=== PATIENT | female | born 2005 | race Caucasian/White ===

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

== ENCOUNTER 2023-01-28 13:22 | Emergency (ER) | payer MEDICAID, SELFPAY ==
[2023-01-28 13:24] VITALS: BP 131/82; PULSE 96; RESP 18; TEMP 36.4; O2SAT 100; BMI 20.7
--- NOTE | 2023-01-28 13:52 | EDS_ITS ---
HPI History of Present Illness Chief Complaint: Other, Pain/Inj Informant: patient Narrative Narrative: 17-year-old female presenting to the emergency room with neck pain. Patient states that on Wednesday morning she woke with pain in the right side of her neck. She notes limited range of motion due to the pain as well as discomfort with swallowing but no sore throat. No recent infections or fevers. She states that she felt like she had not in her neck on the right side and now feels some small lymph nodes. She denies any radicular symptoms. No rashes. No known trauma. Wednesday she states her neck felt fine does not recall doing anything that would have injured her neck. She states that she went to urgent care and was referred here. She denies any significant illnesses/diagnoses and no immunocompromise state. She states that she has been drinking a lot of fluids but still feels thirsty. PFSH PFS Home Medications venlafaxine 25 mg tablet 25 mg PO BID 10/26/21 [History Last Taken Unknown] cyclobenzaprine 10 mg tablet 10 mg PO TID PRN Muscle Spasm #15 TABLETS 01/28/23 [Rx Last Taken Unknown] naproxen 500 mg tablet 500 mg PO BID #20 tabs 01/28/23 [Rx Last Taken Unknown] Allergy/AdvReac Type Severity Reaction Status Date / Time No Known Allergies Allergy Verified 01/28/23 13:23 Social History (Updated 01/28/23 @ 13:[address] Hernando Bhardwaj, DO) Smoking Status: Never smoker substance use type: does not use ROS ROS ED Constitutional Constitutional ED: Denies chills, fever(s) or weight loss Eyes Eyes: Denies change in vision or diplopia ENT ENT ED: Denies ear pain, rhinorrhea or sore throat Cardiovascular Cardiovascular: Denies chest pain, orthopnea, palpitations or racing heartbeat Respiratory/Chest Respiratory/Chest: Denies cough, dyspnea or orthopnea Gastrointestinal Gastrointestinal: Denies abdominal pain, diarrhea, nausea or vomiting Genitourinary Genitourinary ED: Denies dysuria, hematuria or urinary frequency Musculoskeletal Musculoskeletal: Reports neck pain; Denies arthralgias or myalgias Integumentary Denies abscess or rash Neurologic Neurologic: Denies headache(s), paresthesias or weakness Psychiatric Psychiatric: Denies anxiety, depression, suicidal ideation or suicidal thoughts Endocrine Endocrinology: Denies polydipsia, polyphagia or polyuria Hematologic/Lymphatic Hematologic/Lymphatic: Reports lymphadenopathy Allergic/Immunologic Allergic/Immunologic ED: Denies mouth swelling, tongue swelling or urticaria EXAM Physical Exam Const Vital Signs: 01/28/23 13:24 Temperature 97.6 F L Temperature Source Temporal Pulse Rate 96 Respiratory Rate 18 Blood Pressure 131/82 H Blood Pressure Mean 98 Pulse Ox 100 Oxygen Delivery Method Room Air Positive well nourished and well developed General Appearance ED: well developed HEENT Reports normocephalic, head/scalp atraumatic and moist mucous membranes HEENT Narrative: Specifically I do not see a retropharyngeal or peritonsillar abscess. Floor of the mouth is soft. There is no trismus. Eyes PERRL and EOMs intact bilaterally Neck supple and no JVD Neck Narrative: There are a few less than 1/2 cm lymph nodes in the right posterior chain that are mobile and nontender. No overlying rash or erythema. She reports tenderness in the right suboccipital triangle and posterior spinal musculature. Resp normal respiratory effort and clear to auscultation bilaterally Cardio regular rate, regular rhythm and no murmurs GI normal to inspection, nondistended, normoactive bowel sounds and non-tender Palpation: soft Back/Spine no CVA tenderness and normal ROM Extremity normal to inspection General Extremety ED: Negative for edema General Extremity: Negative for edema Neuro oriented x3 and CN's II-XII intact bilaterally Sensorium / Orientation: alert Motor Exam: strength 5/5 throughout Psych mental status grossly normal Mood & Affect: Negative for depressed or tearful Skin no rashes or lesions noted and no wounds MDM MDM MDM Narrative Medical decision making narrative: We will need x-rays were obtained which were interpreted and reviewed by myself. This demonstrates a straightening of the normal cervical lordosis. There is normal soft tissue stripe. No significant degenerative changes. At this point I think this most likely muscular spasm. I do not see evidence of infection such as retropharyngeal abscess. The lymph nodes the patient feel appear nonpathological. Patient woke with symptoms and has had no other symptoms other than limited range of motion and pain. Patient will be treated with anti-inflammatories and muscle relaxant. Would recommend heat and stretching. Follow-up if not improving return if worsening Lab Data Labs: Laboratory Results - last 24 hr 01/28/23 14:19 POC Glucose 101 Radiography Diagnostic Testing: Clinical Impression(s) from Imaging Studies Cervical Spine X-Ray 01/28/23 13:55 IMPRESSION: No acute fracture or dislocation identified in the cervical spine. Electronically Signed: Aranza Taylor MD at 15:07 EDT Reading Location ID and State: [facility] / [place] Tel , Service support , Discharge Plan Triage Chief Complaint: Other, Pain/Inj ED Provider: Hernando Bhardwaj Dx/Rx/DC Orders Clinical Impression: Cervical paraspinal muscle spasm Instructions: ED Neck Spasm, No Trauma Prescriptions: New cyclobenzaprine [cyclobenzaprine] 10 mg tablet 10 mg PO TID PRN (Reason: Muscle Spasm) Qty: 15 0RF naproxen 500 mg tablet 500 mg PO BID Qty: 20 0RF No Action venlafaxine 25 mg tablet 25 mg PO BID Patient Comments: TAKE 1 TABLET BY MOUTH TWICE A DAY Primary Care Provider: Michela Lovelace Referrals: Michela Lovelace MD [Primary Care Provider] - 1 Week if not improving Disposition Disposition: Home, Self Care
--- NOTE | 2023-01-28 13:55 | RAD_ITS ---
HISTORY: pain. TECHNIQUE: XR Spine Cervical 2 or 3 Views. COMPARISON: None. FINDINGS: VERTEBRAE: Vertebral body heights maintained. No acute fracture identified. ALIGNMENT: No significant anterior or posterior subluxation. Mild reversal of the cervical lordosis. INTERVERTEBRAL DISCS: Disc heights preserved. SOFT TISSUES: No significant prevertebral soft tissue swelling. RAD/Cerv Spine 2 or 3 Views IMPRESSION: No acute fracture or dislocation identified in the cervical spine. Electronically Signed: Aranza Taylor MD at 15:07 EDT ,
[2023-01-28 14:36] LABS: Bedside Glucose 101 mg/dL (74-106)
== END 2023-01-28 15:25 | disposition home or self-care (01) ==
PROVIDERS: Emergency Provider Emergency Medicine; PCP Pediatrics; Visit Provider Emergency Medicine
DX: M62.838 Other muscle spasm (principal); Z79.899 Other long term (current) drug therapy
CPT/HCPCS: 72040; 82962; 99282; A4216

== ENCOUNTER 2023-10-29 11:34 | Emergency (ER) | payer MEDICAID, SELFPAY ==
[2023-10-29 11:35] VITALS: BP 112/86; PULSE 86; RESP 18; TEMP 36.6; O2SAT 97; O2SAT 99; BMI 21.8
--- NOTE | 2023-10-29 12:38 | EDS_ITS ---
HPI <CHEL Baez - Last Filed: 10/29/23 20:51> History of Present Illness Chief Complaint: Dental Narrative Narrative: Patient is a 18-year-old female with no significant medical history presents to the emergency department for complaints of left lower jaw pain. Patient states that she does know that she has her wisdom teeth coming in, they are intermittently painful, usually she drinks some cold water it goes away. Today while she was at work, the pain was unbearable. She states her some inflammation around the gums, she is here for evaluation. PFSH <CHEL Baez - Last Filed: 10/29/23 20:51> [facility] Home Medications ?Medication ?Instructions ?Recorded ?Last Taken ?Type venlafaxine 25 mg tablet 25 mg PO BID 10/26/21 Unknown History cyclobenzaprine 10 mg tablet 10 mg PO TID PRN Muscle Spasm #15 01/28/23 Unknown Rx TABLETS naproxen 500 mg tablet 500 mg PO BID #20 tabs 01/28/23 Unknown Rx naproxen 500 mg tablet (Naprosyn) 500 mg PO BID PRN pain #20 tabs 10/29/23 Unknown Rx penicillin V potassium 500 mg 500 mg PO 4X/DAY 7 days #28 tabs 10/29/23 Unknown Rx tablet Allergy/AdvReac Type Severity Reaction Status Date / Time No Known Allergies Allergy Verified 10/29/23 11:35 Social History (Updated 01/28/23 @ 13:[address] Hernando Bhradwaj, DO) Smoking Status: Never smoker substance use type: does not use ROS <CHEL Baez - Last Filed: 10/29/23 20:51> ROS ED ROS Narrative Constitutional: Negative for fever, chills, weight loss, weakness Eyes: Negative for vision loss, vision change, double vision ENT: Negative for any sore throat, ear pain, congestion. Positive for left lower jaw pain Cardiovascular: Negative for any chest pain, tightness, palpitations Respiratory: Negative for any cough, sputum production, hemoptysis, dyspnea, dyspnea on exertion, orthopnea Gastrointestinal: Negative for any abdominal pain, nausea, vomiting, diarrhea, constipation, blood in stool, blood in vomit : Negative for any urinary frequency, dysuria, retention, blood in urine Muscle skeletal: Negative for any neck pain, back pain Neurological: Negative for any headache, syncope, dizziness Skin: Negative for any rashes, itching, abrasions, lacerations Psychiatric: Negative for any depression, anxiety, stress, suicidal ideation, homicidal ideation Hematologic: Negative for any excessive bruising, easy bleeding EXAM <CHEL Baez - Last Filed: 10/29/23 20:51> Physical Exam Narrative Exam Narrative: Vital signs reviewed. HEET: Head normocephalic atraumatic, TMs clear bilaterally. Posterior pharynx is clear, moist mucous membranes. Nares clear bilaterally. Patient has some showing of her wisdom teeth bilateral lower jaw. However patient's left is more pronounced. Patient has pain to palpation around the gumline. There is no drainable abscess. Patient has no trismus. Neck: Supple with no lymphadenopathy or tenderness. No signs of meningismus. Cardiac: Regular rate and rhythm no murmurs gallops or rubs, equal peripheral pulses bilaterally. Respiratory: Lungs clear to auscultation bilaterally. No chest tenderness. Abdomen: Soft, nontender, nondistended. No abdominal bruit or pulsatile masses. No hepatosplenomegaly Extremities: No peripheral edema, no signs of gross trauma or deformity. Active full range of motion of all extremities. Neuro: Cranial nerves II through XII intact, no focal neurological deficits. Skin: Clean dry and intact with no rash, purpura, petechiae, vesicles or pustules. Backs/flank: No CVA tenderness, no midline spinal tenderness, no deformity. Psych: Normal mood and affect. No SI, HI or acute psychosis. Const Vital Signs: 10/29/23 11:35 10/29/23 11:35 10/29/23 13:28 Temperature 97.9 F 97.9 F 97.9 F Temperature Source Temporal Temporal Pulse Rate 86 86 74 Respiratory Rate 18 18 14 Blood Pressure 112/86 H 112/86 H 120/68 Blood Pressure Mean 94 94 85 Pulse Ox 97 99 99 Oxygen Delivery Method Room Air Room Air <Dr. Moustapha Gong DO - Last Filed: 10/29/23 21:18> Physical Exam Const Vital Signs: 10/29/23 11:35 10/29/23 11:35 10/29/23 13:28 Temperature 97.9 F 97.9 F 97.9 F Temperature Source Temporal Temporal Pulse Rate 86 86 74 Respiratory Rate 18 18 14 Blood Pressure 112/86 H 112/86 H 120/68 Blood Pressure Mean 94 94 85 Pulse Ox 97 99 99 Oxygen Delivery Method Room Air Room Air [facility] <CHEL Baez - Last Filed: 10/29/23 20:51> [facility] Treatment and Re-Evaluation :: Patient appears to be in no obvious distress, patient presents presents to the emergency department with complaints of left lower jaw pain. Patient physical seems consistent with wisdom teeth coming through to the left lower jaw. There is some erythema to the gumline however there is no drainable abscess. At this time, I do believe the patient can be discharged home with naproxen as well as Pen-Vee K. She will follow-up closely with her oral surgeon. <Dr. Moustapha Gong DO - Last Filed: 10/29/23 21:18> [facility] Narrative Medical decision making narrative: Patient appears to be in no obvious respiratory distress, patient's vital signs are stable. Patient presents to the emergency department with bilateral lower jaw pain. Worse on the left side. Differential includes dental caries, dental abscess, wisdom teeth, gum disease. Patient's physical examination shows no significant infection. Patient be placed on naproxen as well as Pen-Vee K. Patient understands she needs to follow-up with her oral surgeon. Patient is agreeable with the plan, patient stable for discharge. Instructed return for any worsening symptoms. This patient was seen with a PA/TECHNICAL MARKETING CONSULTANT Individually assessed they patient including history and physical. I have reviewed everything on the chart that is available and agree with the documentation provided by the PA/TECHNICAL MARKETING CONSULTANT including discussion about the assessment, treatment plan, discussion, and return precautions. Patient presenting with dental pain is bilateral but worse on the left. I do believe this is likely from her wisdom tooth coming and she has a dentist. She needs to follow-up. She request antibiotics which were provided. She is also given Naprosyn. Discharge Plan Triage Chief Complaint: Dental ED Midlevel Provider: Alfred Huddleston ED Provider: Moustapha Gong Dx/Rx/DC Orders Clinical Impression: Jaw pain, Pain, dental Instructions: ED Dental Pain Prescriptions: New penicillin V potassium 500 mg tablet 500 mg PO 4X/DAY 7 Days Qty: 28 0RF naproxen [Naprosyn] 500 mg tablet 500 mg PO BID PRN (Reason: pain) Qty: 20 0RF No Action venlafaxine 25 mg tablet 25 mg PO BID Patient Comments: TAKE 1 TABLET BY MOUTH TWICE A DAY cyclobenzaprine [cyclobenzaprine] 10 mg tablet 10 mg PO TID PRN (Reason: Muscle Spasm) Qty: 15 0RF naproxen 500 mg tablet 500 mg PO BID Qty: 20 0RF Primary Care Provider: Michela Lovelace Referrals: Michela Lovelace MD [Primary Care Provider] - Activity Restrictions/Additional Instructions: Please ensure that you follow-up with your oral surgeon. Take the antibiotics until finished. Print Language: Korean Disposition Disposition: Home, Self Care Discharge Date/Time: 10/29/23 13:29
[2023-10-29 13:28] VITALS: BP 120/68; PULSE 74; RESP 14; TEMP 36.6; O2SAT 99
== END 2023-10-29 13:29 | disposition home or self-care (01) ==
PROVIDERS: Emergency Provider Student in an Organized Health Care Education/Training Program; PCP Pediatrics; Visit Provider Student in an Organized Health Care Education/Training Program
DX: K08.89 Other specified disorders of teeth and supporting structures (principal); R68.84 Jaw pain
CPT/HCPCS: 99282